=== PATIENT | female | born 1960 | race Caucasian/White ===

== ENCOUNTER 2021-08-26 22:53 | Emergency (ER) | payer SELFPAY ==
[2021-08-26] MEDS ORDERED: MORPHINE SULFATE 4 MG INJ IV ONE (23:42)
[2021-08-26] MEDS ORDERED: Zofran 4 MG/2 ML VIAL IV ONE (23:42)
[2021-08-26] MEDS ORDERED: Sodium Chloride 0.9% 500 ML 500 ML IV ONE (23:43)
[2021-08-27] MEDS ORDERED: Zofran 4 MG/2 ML VIAL ONE (00:12)
[2021-08-27] MEDS ORDERED: MORPHINE SULFATE 4 MG INJ ONE (00:13)
[2021-08-27] MEDS ORDERED: Sodium Chloride 0.9% 500 ML 500 ML IV ONE (00:13)
[2021-08-27 00:18] LABS: Absolute Neutrophil Ct (ANC) 2.59 x10^3/uL (1.4-6.9); Basophil (Absolute #) 0.05 x10^3/uL (0-0.4); Eosinophil % 1.6 % (0.00-5.0); Eosinophil (Absolute #) 0.06 x10^3/uL (0-0.5); Hematocrit 33.9 % (35-47); Hemoglobin 11.2 g/dL (12.0-16.0); Lymphocyte (Absolute #) 0.43 x10^3/uL (1.0-4.6); Lymphocytes % 11.5 % (24.0-44.0); Mean Cell Volume 92.1 fL (78-100); Mean Corpuscular Hemoglobin 30.4 pg (26-32); Mean Platelet Volume 9.7 fL (7.5-11.0); Monocyte (Absolute #) 0.61 x10^3/uL (0.0-1.3); Monocytes % 16.3 % (0.0-12.0); Neutrophil % 69.3 % (36.0-66.0); Platelet Count 178 x10^3/uL (150-450); Red Blood Count 3.68 x10^6/uL (4.1-5.4); Red Cell Distribution Width 13.5 % (11.5-14.0); White Blood Count 3.7 x10^3/uL (4.0-10.5)
[2021-08-27 00:30] VITALS: O2SAT 99
[2021-08-27 00:30] LABS: ALBUMIN 3.6 g/dL (3.5-5.0); ALKALINE PHOSPHATASE 106 U/L (38-126); ANION GAP 6.9 MEQ/L (5-15); BLOOD UREA NITROGEN 10 mg/dL (7-17); CHLORIDE 104 mmol/L (98-107); Calcium 8.7 mg/dL (8.4-10.2); Carbon Dioxide 27 mmol/L (22-30); EST GLOMERULAR FILTRATION RATE > 60.0 ML/MIN; Glucose 97 mg/dL (74-106); LIPASE 102 U/L (23-300); Potassium 3.4 mmol/L (3.5-5.1); SGOT/AST 22 U/L (14-36); SGPT/ALT 14 U/L (0-35); SODIUM 135 mmol/L (137-145); Total Protein 6.4 g/dL (6.3-8.2)
--- NOTE | 2021-08-27 00:35 | ERPHSYRPT ---
- History of Present Illness Time Seen by Provider: 08/26/21 23:11 Historian: patient Exam Limitations: no limitations Patient Subjective Stated Complaint: pt states "My stomach started hurting on Friday." Triage Nursing Assessment: Pt ambulatory to bed by self, pt alert and oriented x3, pt c/o LLQ pain since friday, pt denies n/v/d at this time, pt took 2 aleve at 1999, pt has hx of her internal organs being reversed per pt. pt denies fever, pt has possible appendectomy but unsure, pt states "I have a scar there but I don't know if I had my appendix removed or not." Physician History: 60-year-old female presented to the ER with chief complaint of left lower quadrant pain off and on for the last 2 days, sharp, moderate to severe, more with movements and certain way without associated nausea vomiting diarrhea. Denies any urinary complaints. No fever or chills reported. Timing/Duration: day(s) (2), gradual onset, worse Activities at Onset: rest Quality: sharpness Abdominal Pain Onset Location: LLQ Pain Radiation: back Severity of Pain-Max: severe Severity of Pain-Current: moderate Modifying Factors: Worsens With: movement Associated Symptoms: denies symptoms Previous symptoms: no prior history Allergies/Adverse Reactions: No Known Drug Allergies Allergy (Verified 08/26/21 23:17) Home Medications: No Reportable Medications [No Reported Medications] 08/26/21 [History] Hx Tetanus, Diphtheria Vaccination/Date Given: No Hx Influenza Vaccination/Date Given: No Hx Pneumococcal Vaccination/Date Given: No Immunizations Up to Date: Yes Travel Risk - International Travel Have you traveled outside of the country in past 3 weeks: No - Coronavirus Screening Are you exhibiting any of the following symptoms?: No Close contact with a COVID-19 positive Pt in past 14-21 Days: No - Vaccine Status Have you recieved a Covid-19 vaccination: No - Review of Systems Constitutional: No Symptoms Eyes: No Symptoms Ears, Nose, & Throat: No Symptoms Respiratory: No Symptoms Cardiac: No Symptoms Abdominal/Gastrointestinal: Abdominal Pain Genitourinary Symptoms: No Symptoms Musculoskeletal: Back Pain Skin: No Symptoms Neurological: No Symptoms Psychological: No Symptoms Hematologic/Lymphatic: No Symptoms Immunological/Allergic: No Symptoms - Past Medical History Pertinent Past Medical History: Yes Neurological History: No Pertinent History ENT History: No Pertinent History Cardiac History: No Pertinent History Respiratory History: No Pertinent History Endocrine Medical History: No Pertinent History Musculoskeletal History: No Pertinent History GI Medical History: No Pertinent History History: No Pertinent History Psycho-Social History: No Pertinent History Female Reproductive Disorders: No Pertinent History - Past Surgical History Past Surgical History: Yes Neuro Surgical History: No Pertinent History Cardiac: No Pertinent History Respiratory: No Pertinent History Gastrointestinal: No Pertinent History Genitourinary: No Pertinent History Musculoskeletal: No Pertinent History Female Surgical History: Hysterectomy Other Surgical History: possible appendectomy? - Social History Smoking Status: Current every day smoker Exposure to second hand smoke: No Drug Use: none Patient Lives Alone: No - Nursing Vital Signs Nursing Vital Signs: Initial Vital Signs Temperature 99.1 F 08/26/21 23:18 Pulse Rate 94 H 08/26/21 23:18 Respiratory Rate 18 08/26/21 23:18 Blood Pressure 176/95 08/26/21 23:18 O2 Sat by Pulse Oximetry 98 08/26/21 23:18 Pain Scale Pain Intensity 4 - Physical Exam General Appearance: no apparent distress, alert Eye Exam: PERRL/EOMI Ears, Nose, Throat Exam: normal ENT inspection Neck Exam: normal inspection, full range of motion Respiratory Exam: normal breath sounds, lungs clear Cardiovascular Exam: regular rate/rhythm, normal heart sounds Gastrointestinal/Abdomen Exam: soft, normal bowel sounds, tenderness (Mild tenderness left lower quadrant without guarding or rebound) Extremity Exam: normal inspection, normal range of motion Neurologic Exam: alert, oriented x 3, cooperative Skin Exam: normal color SpO2 Interpretation: normal SpO2: 99 O2 Delivery: Room Air Ordered Tests: Active Orders 24 hr Category Date Time Status IV Insertion STAT Care 08/26/21 23:42 Active NPO (ED) STAT Care 08/26/21 23:42 Active ABDOMEN AND PELVIS W/0 CONTRAS [CT] Stat Exams 08/26/21 23:42 Taken Lactic Acid Stat Lab 08/26/21 23:42 Completed UA W/RFX CULTURE Stat Lab 08/27/21 02:00 Ordered Medication Summary Discontinued Medications Generic Name Dose Route Start Last Admin Trade Name Freq PRN Reason Stop Dose Admin Sodium Chloride 500 mls @ 500 mls/hr 08/26/21 23:43 08/27/21 00:16 Sodium Chloride 0.9% 500 Ml IV 08/27/21 00:42 500 mls/hr .Q1H ONE Administration Sodium Chloride Confirm 08/27/21 00:13 Sodium Chloride 0.9% 500 Ml Administered 08/27/21 00:14 Dose 500 mls @ ud IV .STK-MED ONE Morphine Sulfate 4 mg 08/26/21 23:42 08/27/21 00:15 Morphine Sulfate 4 Mg/Ml Injection IV 08/26/21 23:43 4 mg STAT ONE Administration Morphine Sulfate Confirm 08/27/21 00:13 Morphine Sulfate 4 Mg/Ml Injection Administered 08/27/21 00:14 Dose 4 mg .ROUTE .STK-MED ONE Ondansetron HCl 4 mg 08/26/21 23:42 08/27/21 00:15 Ondansetron Hcl 4 Mg/2 Ml Vial IV 08/26/21 23:43 4 mg STAT ONE Administration Ondansetron HCl Confirm 08/27/21 00:12 Ondansetron Hcl 4 Mg/2 Ml Vial Administered 08/27/21 00:13 Dose 4 mg .ROUTE .STK-MED ONE Lab/Rad Data: Laboratory Result Diagrams 08/26/21 00:15 08/26/21 00:15 Laboratory Results 08/27/21 08/26/21 08/26/21 Range/Units 00:06 00:15 00:15 WBC 3.7 L (4.0-10.5) x10^3/uL RBC 3.68 L (4.1-5.4) x10^6/uL Hgb 11.2 L (12.0-16.0) g/dL Hct 33.9 L (35-47) % MCV 92.1 (78-100) fL MCH 30.4 (26-32) pg MCHC 33.0 (32-36) g/dL RDW 13.5 (11.5-14.0) % Plt Count 178 (150-450) x10^3/uL MPV 9.7 (7.5-11.0) fL Gran % 69.3 H (36.0-66.0) % Immature Gran % (Auto) 0.0 (0.00-0.4) % Nucleat RBC Rel Count 0.0 (0.00-0.1) % Eos # (Auto) 0.06 (0-0.5) x10^3/uL Immature Gran # (Auto) 0.00 (0.00-0.03) x10^3u/L Absolute Lymphs (auto) 0.43 L (1.0-4.6) x10^3/uL Absolute Monos (auto) 0.61 (0.0-1.3) x10^3/uL Absolute Nucleated RBC 0.00 (0.00-0.01) x10^3u/L Lymphocytes % 11.5 L (24.0-44.0) % Monocytes % 16.3 H (0.0-12.0) % Eosinophils % 1.6 (0.00-5.0) % Basophils % 1.3 (0.0-0.4) % Absolute Granulocytes 2.59 (1.4-6.9) x10^3/uL Basophils # 0.05 (0-0.4) x10^3/uL Sodium 135 L (137-145) mmol/L Potassium 3.4 L (3.5-5.1) mmol/L Chloride 104 (98-107) mmol/L Carbon Dioxide 27 (22-30) mmol/L Anion Gap 6.9 (5-15) MEQ/L BUN 10 (7-17) mg/dL Creatinine 0.80 (0.52-1.04) mg/dL Estimated GFR > 60.0 ML/MIN Glucose 97 (74-106) mg/dL Lactic Acid 0.8 (0.4-2.0) Calcium 8.7 (8.4-10.2) mg/dL Total Bilirubin 0.50 (0.2-1.3) mg/dL AST 22 (14-36) U/L ALT 14 (0-35) U/L Alkaline Phosphatase 106 (38-126) U/L Serum Total Protein 6.4 (6.3-8.2) g/dL Albumin 3.6 (3.5-5.0) g/dL Lipase 102 (23-300) U/L - Progress Progress: improved Progress Note: 08/27/21 02:01 60-year-old is evaluated for left lower quadrant pain off and on for 4 days. She is given symptomatic treatment, on reevaluation her pain is completely resolved. No peritoneal signs on repeated evaluations as well. Has mildly low white count, grossly unremarkable chemistries. CT abdomen pelvis negative for any acute intra-abdominal/pelvic findings. Do not know the exact cause of her pain but have ruled out all the major emergencies, recommended symptomatic/supportive care and outpatient follow-up. Discussed signs symptoms of worsening needing return to ER which she seems understanding. Counseled pt/family regarding: lab results, diagnosis, need for follow-up, rad results - Departure Departure Disposition: Home Clinical Impression: Left lower quadrant abdominal pain Condition: Stable Critical Care Time: No Referrals: DOCTOR,NO FAMILY [Primary Care Provider] - Follow up/PCP as directed MALU MIMS MD [ACTIVE STAFF] - Follow Up with PCP/3 days Instructions: Severe Abdominal Pain, Adult (DC) Additional Instructions: Take Tylenol/ibuprofen as needed. Drink plenty of fluids to keep yourself well- hydrated. Follow-up with primary care for reevaluation. Return to ER for intractable pain and if develop fever chills/vomiting etc.
[2021-08-27 01:07] VITALS: BP 120/66; PULSE 72
[2021-08-27 02:22] LABS: Appearance CLEAR (CLEAR); Bilirubin NEGATIVE (NEGATIVE); Glucose NEGATIVE (NEGATIVE); Ketones NEGATIVE (NEGATIVE); Specific Gravity <=1.005 (1.005-1.025)
[2021-08-27 02:23] LABS: Bacteria NONE SEEN /HPF (NEGATIVE); Dipstick done @ ? MAIN LAB; Nitrite NEGATIVE (NEGATIVE); Protein,Urine Dip NEGATIVE (Negative); RBC NEGATIVE Ery/ul (0-5); RBC NONE SEEN /HPF (0-2); Urine Cultured Indicated? NO; Urobilinogen 0.2 mg/dL (0-1); WBC NONE SEEN /HPF (0-5)
--- NOTE | 2021-08-27 08:46 | XRAY ---
Indication: Left abdomen and pelvic pain/burning. Situs inversus. Multiple contiguous axial images obtained through the abdomen and pelvis without contrast. Comparison: None Lung bases clear. Heart not enlarged and right sided. 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 Noncontrasted stomach and bowel loops appear nonobstructed. Appendix not visualized. There is mild diffuse scattered colonic fecal debris throughout. Previous hysterectomy. Nonvisualization gallbladder either contracted or surgically absent. No free fluid/air. A few splenic calcified granulomas. Remaining liver, pancreas, spleen, adrenal glands, kidneys, ureters, and bladder are unremarkable for noncontrast exam. Mild scattered aortoiliac calcifications without AAA. Osseous structures intact with normal/mild degenerative changes throughout the thoracolumbar spine, small L2/L3 Schmorl nodes, mild dextroscoliosis centered at L3, and mild bilateral hip degenerative arthropathy. No ventral or inguinal hernias. Impression: 1. Situs inversus. 2. Mild diffuse fecal stasis and chronic bony findings. 3. Remaining CT abdomen/pelvis without contrast exam is negative. Comment: Preliminary interpretation made by [facility]. No critical discrepancy.
== END 2021-08-27 02:42 | disposition home or self-care (01) ==
LOC: ED 22:53
DX: R10.32 Left lower quadrant pain (principal); Z72.0 Tobacco use; Z28.310 Unvaccinated for COVID-19
CPT/HCPCS: 36000; 36415; 74176; 80053; 81015; 83605; 83690; 85025; 96374; 96375; 99284; J2270; J2405